=== PATIENT | male | born 1985 | race Caucasian/White ===

== ENCOUNTER 2022-08-11 14:47 | Emergency (ER) | payer OTHER ==
[~2022-08-11] VITALS: Ht 162.6 cm; Wt 99.8 kg
[2022-08-11] MEDS ORDERED: KETOROLAC TROMETHAMINE 15 MG/ML VIAL ONE (16:51)
[2022-08-11] MEDS ORDERED: HYDROCODONE/APAP 5/325MG TABLET ONE (16:51)
[2022-08-11] MEDS: KETOROLAC TROMETHAMINE INJ 30 MG/ML VIAL IM ONE (16:55)
[2022-08-11] MEDS: HYDROCODONE/APAP 5/325MG TABLET PO ONE (16:56)
[2022-08-11] MEDS ORDERED: NAPR-1009 PO (17:21)
[2022-08-11] MEDS ORDERED: CYCL5TAB PO (17:35)
[2022-08-11 17:41] VITALS: BP 151/69
== END 2022-08-11 17:42 | disposition home or self-care (01) ==
LOC: ER 14:57
DX: S89.82XA Other specified injuries of left lower leg, initial encounter (principal); M25.562 Pain in left knee; Z60.2 Problems related to living alone; Z79.899 Other long term (current) drug therapy; W18.39XA Other fall on same level, initial encounter; Y93.89 Activity, other specified; Y92.89 Other specified places as the place of occurrence of the external cause; Y99.8 Other external cause status
CPT/HCPCS: 73564-TC; J1885